=== PATIENT | male | born 1985 ===

== ENCOUNTER 2017-02-04 21:41 | Emergency (ER) | payer BC, MEDICAID, OTHER ==
[2017-02-04 21:49] VITALS: BP 132/68; PULSE 60; RESP 18; TEMP 98.4; O2SAT 98
--- NOTE | 2017-02-04 22:17 | ED PDOC ---
Lower Extremity Pain/Injury Time Seen by Provider: 02/04/17 22:02 Chief Complaint (Nursing): Lower Extremity Problem/Injury Chief Complaint (Provider): Foot pain History Per: Patient Additional Complaint(s): Pt state he hit his right foot against a dresser today. Swelling and discoloration noted on right 5th digit. Denies taking medication. Able to ambulate with limp Past Medical History Reviewed: Nursing Documentation, Vital Signs Vital Signs: Last Vital Signs Temp 98.4 F 02/04/17 21:45 Pulse 60 02/04/17 21:45 Resp 18 02/04/17 21:45 BP 132/68 02/04/17 21:45 Pulse Ox 98 02/04/17 21:45 - Medical History PMH: No Chronic Diseases - Surgical History Surgical History: Appendectomy - Family History Family History: States: No Known Family Hx - Living Arrangements Living Arrangements: With Family - Social History Current smoker - smoking cessation education provided: No Alcohol: Social Drugs: Denies - Home Medications Home Medications: Ambulatory Orders Medication Instructions Recorded Cyclobenzaprine HCl [Flexeril] 10 mg PO TID PRN #15 tab 11/29/14 Ibuprofen [Motrin] 600 mg PO Q6 #20 tab 02/04/17 oxyCODONE/Acetaminophen [Percocet 1 ea PO Q6 PRN #5 tab 02/04/17 5/325 mg Tab] - Allergies Allergies/Adverse Reactions: Allergies Allergy/AdvReac Type Severity Reaction Status Date / Time No Known Allergies Allergy Verified 11/28/14 23:36 Review of Systems ROS Statement: Except As Marked, All Systems Reviewed And Found Negative Musculoskeletal: Positive for: Foot Pain Physical Exam - Reviewed Nursing Documentation Reviewed: Yes Vital Signs Reviewed: Yes - Physical Exam Appears: Positive for: Well, Non-toxic, No Acute Distress Head Exam: Positive for: ATRAUMATIC, NORMAL INSPECTION, NORMOCEPHALIC Skin: Positive for: Normal Color, Warm, DRY Eye Exam: Positive for: EOMI, Normal appearance, PERRL ENT: Positive for: Normal ENT Inspection Neck: Positive for: Normal, Painless ROM Cardiovascular/Chest: Positive for: Regular Rate, Rhythm Respiratory: Positive for: CNT, Normal Breath Sounds Gastrointestinal/Abdominal: Positive for: Normal Exam, Bowel Sounds, Soft Back: Positive for: Normal Inspection Extremity: Positive for: Tenderness, Swelling, Other (ecchymosis to 5th digit on right foot. distal sensation intact) Neurologic/Psych: Positive for: Alert, Oriented - ECG O2 Sat by Pulse Oximetry: 98 Medical Decision Making Medical Decision Making: Medicated with Motrin PO XR: (+) Fracture to 5th, as read by ARMANDO Pt placed in surgical shoe, declined crutches. Able to ambulate with steady gait Given Podiatry for follow up and [facility] as well. Disposition - Clinical Impression Clinical Impression: Toe fracture - Patient ED Disposition Is Patient to be Admitted: No - Disposition Referrals: Podiatry Clinic [Outside] Disposition: Routine/Home Disposition Time: 23:10 Condition: STABLE Prescriptions: Ibuprofen [Motrin] 600 mg PO Q6 #20 tab oxyCODONE/Acetaminophen [Percocet 5/325 mg Tab] 1 ea PO Q6 PRN #5 tab PRN Reason: Pain, Severe (8-10) Instructions: Toe Fracture (ED) Forms: [facility] ([place]), [facility] ED School/Work Excuse
--- NOTE | 2017-02-05 12:42 | RAD ---
Indication: Pain status post crush injury Right foot 5th digit (toe) radiographs Indication: Pain status post crush injury Comparison: None available Findings: Displaced oblique fracture deformity of the proximal 5th digit with associated soft tissue swelling. Remainder of the visualized osseous structures appear intact. No evidence of radiopaque foreign body. Impression: Displaced oblique fracture deformity of the proximal 5th digit with associated soft tissue swelling.
== END 2017-02-04 23:55 | disposition home or self-care (01) ==
LOC: H.ER 21:41
DX: S92.501A Displaced unspecified fracture of right lesser toe(s), initial encounter for closed fracture (principal); W22.8XXA Striking against or struck by other objects, initial encounter; Y92.003 Bedroom of unspecified non-institutional (private) residence as the place of occurrence of the external cause